=== PATIENT | female | born 1965 | race Asian ===

== ENCOUNTER 2018-08-24 13:17 | Emergency (ER) | payer OTHER ==
[~2018-08-24] VITALS: Ht 170.2 cm; Wt 107.0 kg
[2018-08-24 13:17] VITALS: BP_SYST 106
== END 2018-08-24 13:44 | disposition left against medical advice (07) ==
LOC: SED 13:17
DX: R55 Syncope and collapse (principal); I10 Essential (primary) hypertension; Z53.21 Procedure and treatment not carried out due to patient leaving prior to being seen by health care provider; Z88.0 Allergy status to penicillin; Z88.1 Allergy status to other antibiotic agents
CPT/HCPCS: 99283